=== PATIENT | female | born 1990 | race Caucasian/White ===

== ENCOUNTER 2017-04-30 19:27 | Outpatient (CLI) | payer MEDICAID ==
[~2017-04-30] VITALS: Ht 154.9 cm; Wt 64.2 kg
[2017-04-30 20:24] VITALS: BP 129/91; PULSE 108; RESP 18
[2017-04-30 20:25] VITALS: Ht 154.9 cm; Wt 64.2 kg
[2017-04-30] MEDS ORDERED: FOLI-49 PO (20:29)
[2017-04-30] MEDS ORDERED: PREN1TAB17 PO (20:29)
[2017-04-30 21:25] LABS: URINE BLOOD (Dip) POC 2+ (NEGATIVE)
--- NOTE | 2017-04-30 21:28 | QN ---
Documentation Comment iup 37 weeks luq pain now improved vss exam wnl a/p iup 37 weeks false labor [facility] CHING TIRADO MD Apr 30, 2017 21:28
[2017-04-30 22:57] LABS: ADD UMIC YES; UR ASCORBIC ACID NEGATIVE (NEGATIVE); UR BILIRUBIN (Dip) NEGATIVE (NEGATIVE); UR BLOOD (Dip) 1+ mg/dL (NEGATIVE); UR CLARITY SLIGHTLY CLOUDY (CLEAR); UR COLOR YELLOW (YELLOW); UR GLUCOSE (Dip) NEGATIVE (NEGATIVE); UR KETONES (Dip) NEGATIVE (NEGATIVE); UR LEUKOCYTE ESTERASE (Dip) 1+ Leu/ul (NEGATIVE); UR MUCUS FEW /HPF (NONE SEEN); UR NITRITE (Dip) NEGATIVE (NEGATIVE); UR RBC 25 /HPF (0-5); UR SPECIFIC GRAVITY (Dip) 1.013 (1.003-1.030); UR SQUAMOUS EPITHELIAL CELL MODERATE /HPF (FEW); UR TOTAL PROTEIN (Dip) NEGATIVE (NEGATIVE); UR UROBILINOGEN (Dip) NEGATIVE (NEGATIVE)
--- NOTE | 2017-04-30 23:31 | TRIAGE ---
OB Triage Datetime Report Generated by CPN: 04/30/2017 23:30 Datetime: 04/30/2017 23:09 Time of Arrival: 04/30/2017 19:30 EGA: 36.3 Arrived By: Ambulatory Arrived From: Home Chief Complaint: SENT IN FROM THE DR OFFICE FOR PIH EVALUATION Movement: Present Contractions: Denies/Absent Rupture of Membranes: Denies Vaginal Bleeding: None Vaginal Discharge: Denies Recent Sexual Intercouse: Denies Abdominal Trauma: Not Applicable Patient Complaints: Other Time Provider Notified: 04/30/2017 21:07 Provider Notified: SHAMSIAN Initial Plan: PIH EVAL Datetime: 04/30/2017 21:30 Maternal Assessment Level of Consciousness: Fully Conscious Headache: Denies Blurred Vision: No Nausea/Vomiting: Denies RUQ Epigastric Pain: Denies Facial Edema: None Labor Evaluation Frequency: X1 Monitor Mode: External Duration (sec)2399: 40 Quality: Mild Pattern: Normal: <= 5 Contractions in 10 Minutes Resting Tone [place]: Relaxed Heart Rate FHR Baseline Rate: 135 Monitor Mode: External US FHR Baseline Changes: No Baseline Change Variability: Moderate 6-25 bpm Accelerations: 15X15 Decelerations: None Category: Category I Datetime: 04/30/2017 20:30 Labor Evaluation Frequency: NONE Monitor Mode: External Pattern: Normal: <= 5 Contractions in 10 Minutes Resting Tone [place]: Relaxed Heart Rate FHR Baseline Rate: 135 Monitor Mode: External US Variability: Moderate 6-25 bpm Accelerations: 15X15 Decelerations: None Category: Category I Datetime: 04/30/2017 19:53 Maternal Assessment Level of Consciousness: Fully Conscious DTR's/Clonus: DTRs 2+; No Clonus Headache: Denies Blurred Vision: No Nausea/Vomiting: Denies RUQ Epigastric Pain: Denies Facial Edema: None Datetime: 04/30/2017 19:50 Assessment Type: Triage Maternal Assessment Level of Consciousness: Fully Conscious DTR's/Clonus: DTRs 2+; No Clonus Headache: Denies Blurred Vision: No Respiratory Effort: Unlabored; Regular Rhythm; Equal Expansion Breath Sounds, Left: Clear and Equal Breath Sounds, Right: Clear and Equal Nausea/Vomiting: Denies RUQ Epigastric Pain: Denies Lower Extremities Edema: None Degree: None Upper Extremities Edema: None Degree: None Facial Edema: None Fall Risk Assessment History of Falling: (0) No Secondary Diagnosis: (0) No Ambulatory Aid: (0) Bedrest/Nurse Assist IV Therapy: (0) No Gait: (0) Normal/Bedrest/Immobile Mental Status: (0) Oriented to Own Ability Fall Score: 0 Fall Risk Score Definition: No Risk: No action required
== END 2017-04-30 21:55 | disposition home or self-care (01) ==
LOC: OBT 19:27 → L-D 19:32 → OBT 21:55
PROVIDERS: ATTEND Obstetrics & Gynecology
DX: O47.1 False labor at or after 37 completed weeks of gestation (principal); Z3A.37 37 weeks gestation of pregnancy
CPT/HCPCS: 81001; Z7500; 81003; G0463

== ENCOUNTER 2017-05-07 19:59 | Outpatient (CLI) | payer MEDICAID ==
[~2017-05-07] VITALS: Ht 152.4 cm; Wt 64.7 kg
[~2017-05-07 19:59] MED LIST: FOLI-49 PO; PREN1TAB17 PO
[2017-05-07 21:11] VITALS: BP 132/85; PULSE 105; RESP 18
--- NOTE | 2017-05-07 21:50 | RADRPT ---
PROCEDURE: US OB biophysical profile. CLINICAL INDICATION: decreased movements, contractions TECHNIQUE: Multiple sonographic images of the pelvis were obtained. The images were reviewed on a PACS workstation. COMPARISON: No prior studies are available for comparison. FINDINGS: There is a single viable intrauterine gestation. Cardiac activity is present with 140 beats per min three affiliated. There is a vertex presentation. The placenta is anterior. There is no evidence of placental abruption. There is a normal amount of amniotic fluid with an LAUREN = 11.7 cm. Biophysical profile: movement 2/2 tone 2/2. breathing 2/2 LAUREN 2/2 Total 04/27 RPTAT: AA . IMPRESSION: Normal biophysical profile. . .Hussain Anderson MD, MD Date Time Electronically viewed and signed by .Hussain Anderson MD, MD on 05/07/2017 21:49 .S/
[2017-05-07 22:37] LABS: ADD UMIC YES; UR AMORPHOUS CRYSTAL FEW /HPF (NONE SEEN); UR ASCORBIC ACID NEGATIVE (NEGATIVE); UR BILIRUBIN (Dip) NEGATIVE (NEGATIVE); UR BLOOD (Dip) NEGATIVE (NEGATIVE); UR CLARITY CLOUDY (CLEAR); UR COLOR YELLOW (YELLOW); UR GLUCOSE (Dip) NEGATIVE (NEGATIVE); UR KETONES (Dip) TRACE mg/dL (NEGATIVE); UR LEUKOCYTE ESTERASE (Dip) 2+ Leu/ul (NEGATIVE); UR NITRITE (Dip) NEGATIVE (NEGATIVE); UR RBC 2 /HPF (0-5); UR SPECIFIC GRAVITY (Dip) 1.016 (1.003-1.030); UR SQUAMOUS EPITHELIAL CELL MANY /HPF (FEW); UR TOTAL PROTEIN (Dip) NEGATIVE (NEGATIVE); UR UROBILINOGEN (Dip) NEGATIVE (NEGATIVE)
[2017-05-07 22:39] LABS: BASOPHILS % 0.4 % (0.0-2.0); EOSINOPHILS # 0.1 10^3/ul (0.0-0.5); EOSINOPHILS % 0.9 % (0.0-7.0); HEMATOCRIT 36.9 % (37.0-47.0); HEMOGLOBIN 12.1 g/dl (12.0-16.0); LYMPHOCYTES # 1.8 10^3/ul (0.8-2.9); LYMPHOCYTES % 32.5 % (15.0-51.0); MEAN CORPUSCULAR HEMOGLOBIN 30.4 pg (29.0-33.0); MEAN CORPUSCULAR HGB CONC 32.8 g/dl (32.0-37.0); MEAN CORPUSCULAR VOLUME 92.7 fl (82.0-101.0); MONOCYTE # 0.3 10^3/ul (0.3-0.9); NEUTROPHILS % 59.5 % (39.0-77.0); PLATELET COUNT 328 10^3/UL (140-415); RED BLOOD COUNT 3.98 10^6/ul (4.20-5.40); WHITE BLOOD COUNT 5.5 10^3/ul (4.8-10.8)
[2017-05-07 22:58] LABS: INR 0.89; PARTIAL THROMBOPLASTIN TIME 23.9 Sec (25.0-35.0); PT RATIO 0.9
[2017-05-07 23:02] LABS: ALBUMIN 3.6 g/dl (3.3-4.9); ALBUMIN/GLOBULIN RATIO 1.05; BILIRUBIN,INDIRECT 0.1 mg/dl (0-1.1); BILIRUBIN,TOTAL 0.1 mg/dl (0.2-1.3); CALCIUM 9.7 mg/dl (8.4-10.2); CREATININE 0.45 mg/dl (0.44-1.00); POTASSIUM 3.7 mmol/L (3.5-5.1)
--- NOTE | 2017-05-08 03:40 | PN ---
Triage Information Date/Time 05/08/17 Reason for visit: high blood pressure for 1 weekand yesterday had headahce, uterine contractions q 10 min [id number] Weeks of Gestation 37w3d /Para primigravida Diabetes: none Hypertention: induced Additional information placed on methyldopa 250mg bid started on 05/07/17 Objective Vital Signs Date Time Temp Pulse Resp B/P Pulse Ox O2 Delivery O2 Flow Rate FiO2 05/07/17 21:11 98.2 105 18 132/85 Room Air Heart Rate: 140's Heart Rate Comments tracing reactive Contractions: >10 Minutes Apart Exam no pretibial edema Results/Medications Result Diagram: 05/07/17 2214 05/07/17 221 Results 24 hrs Laboratory Tests Test 05/07/17 20:00 05/07/17 22:14 Urine Color YELLOW Urine Clarity CLOUDY A Urine pH 6.0 Urine Specific [place] 1.016 Urine Ketones TRACE A Urine Nitrite NEGATIVE Urine Bilirubin NEGATIVE Urine Urobilinogen NEGATIVE Urine Leukocyte Esterase 2+ H Urine Microscopic RBC 2 Urine Microscopic WBC 29 H Urine Squamous Epithelial Cells MANY A Urine Calcium Oxalate Crystals MODERATE Urine Amorphous Crystals FEW A Urine Hemoglobin NEGATIVE Urine Glucose NEGATIVE Urine Total Protein NEGATIVE White Blood Count 5.5 Red Blood Count 3.98 L Hemoglobin 12.1 Hematocrit 36.9 L Mean Corpuscular Volume 92.7 Mean Corpuscular Hemoglobin 30.4 Mean Corpuscular Hemoglobin Concent 32.8 Red Cell Distribution Width 14.0 Platelet Count 328 Mean Platelet Volume 10.0 Neutrophils % 59.5 Lymphocytes % 32.5 Monocytes % 6.0 Eosinophils % 0.9 Basophils % 0.4 Nucleated Red Blood Cells % 0.0 Neutrophils # (Manual) 3 Lymphocytes # 1.8 Monocytes # 0.3 Eosinophils # 0.1 Basophils # 0.0 Nucleated Red Blood Cells # 0.0 Prothrombin Time 12.0 L Prothrombin Time Ratio 0.9 INR International Normalized Ratio 0.89 Activated Partial Thromboplast Time 23.9 L Sodium Level 137 Potassium Level 3.7 Chloride Level 99 Carbon Dioxide Level 21 Anion Gap 21 H Blood Urea Nitrogen 12 Creatinine 0.45 Glucose Level 97 Uric Acid 6.0 Calcium Level 9.7 Total Bilirubin 0.1 L Direct Bilirubin 0.00 Indirect Bilirubin 0.1 Aspartate Amino Transf (AST/SGOT) 39 Alanine Aminotransferase (ALT/SGPT) 27 Alkaline Phosphatase 170 H Total Protein 7.0 Albumin 3.6 Globulin 3.40 H Albumin/Globulin Ratio 1.05 Medications cephalexin 500mg q6hr #28 Imaging Results BPP 04/27 LAUREN 11.7 Disposition: Discharge Assessment/Plan IUP 37w3d R/O PIH TOMI CASAREZ MD May 08, 2017 03:38
== END 2017-05-07 23:52 | disposition home or self-care (01) ==
LOC: OBT 19:59 → L-D 20:01 → OBT 23:52
PROVIDERS: ATTEND Obstetrics & Gynecology
DX: O16.3 Unspecified maternal hypertension, third trimester (principal); Z3A.37 37 weeks gestation of pregnancy
CPT/HCPCS: 36415; 76818; 80053; 81001; 84560; 85025; 85610; 85730; Z7500; G0463

== ENCOUNTER 2017-05-12 18:45 | Inpatient (IN) | payer MEDICAID ==
[~2017-05-12] VITALS: Ht 152.4 cm; Wt 65.9 kg
[2017-05-12 19:09] VITALS: Ht 152.4 cm; Wt 65.9 kg
[2017-05-12 21:02] LABS: BASOPHILS % 0.3 % (0.0-2.0); EOSINOPHILS # 0.1 10^3/ul (0.0-0.5); EOSINOPHILS % 0.8 % (0.0-7.0); HEMATOCRIT 37.1 % (37.0-47.0); HEMOGLOBIN 12.6 g/dl (12.0-16.0); LYMPHOCYTES # 1.9 10^3/ul (0.8-2.9); LYMPHOCYTES % 23.9 % (15.0-51.0); MEAN CORPUSCULAR HEMOGLOBIN 31.4 pg (29.0-33.0); MEAN CORPUSCULAR VOLUME 92.5 fl (82.0-101.0); MONOCYTE # 0.5 10^3/ul (0.3-0.9); MONOCYTES % 6.3 % (0.0-11.0); NEUTROPHILS % 67.8 % (39.0-77.0); PLATELET COUNT 343 10^3/UL (140-415); RED BLOOD COUNT 4.01 10^6/ul (4.20-5.40); RED CELL DISTRIBUTION WIDTH 13.9 % (11.5-14.5); WHITE BLOOD COUNT 7.8 10^3/ul (4.8-10.8)
[2017-05-12 21:03] LABS: ADD UMIC YES; UR ASCORBIC ACID NEGATIVE (NEGATIVE); UR BILIRUBIN (Dip) NEGATIVE (NEGATIVE); UR BLOOD (Dip) 2+ mg/dL (NEGATIVE); UR CLARITY CLOUDY (CLEAR); UR COLOR YELLOW (YELLOW); UR GLUCOSE (Dip) NEGATIVE (NEGATIVE); UR KETONES (Dip) NEGATIVE (NEGATIVE); UR LEUKOCYTE ESTERASE (Dip) 3+ Leu/ul (NEGATIVE); UR NITRITE (Dip) NEGATIVE (NEGATIVE); UR RBC 1 /HPF (0-5); UR SPECIFIC GRAVITY (Dip) 1.008 (1.003-1.030); UR SQUAMOUS EPITHELIAL CELL MANY /HPF (FEW); UR TOTAL PROTEIN (Dip) NEGATIVE (NEGATIVE); UR UROBILINOGEN (Dip) NEGATIVE (NEGATIVE)
[2017-05-12 21:22] LABS: INR 0.88; PROTIME 11.9 Sec (12.2-14.2); PT RATIO 0.9
[2017-05-12 21:29] LABS: ALBUMIN 3.7 g/dl (3.3-4.9); ALBUMIN/GLOBULIN RATIO 1.15; BILIRUBIN,INDIRECT 0.2 mg/dl (0-1.1); BILIRUBIN,TOTAL 0.2 mg/dl (0.2-1.3); CALCIUM 9.7 mg/dl (8.4-10.2); CREATININE 0.49 mg/dl (0.44-1.00); POTASSIUM 3.7 mmol/L (3.5-5.1); TOTAL PROTEIN 6.9 g/dl (6.1-8.1); URIC ACID 5.2 mg/dl (3.1-7.9)
[2017-05-12] MEDS ORDERED: CARBOPROST 250 MCG INJ IM PRN (21:30)
[2017-05-12] MEDS ORDERED: MISOPROSTOL 200 MCG TAB PR PRN (21:30)
[2017-05-12] MEDS ORDERED: OXYTOCIN 30 UNITS/LR 500 ML IV SCH ×2 (21:30)
[2017-05-12] MEDS ORDERED: IBUPROFEN 600 MG TAB PO PRN (21:30)
[2017-05-12] MEDS ORDERED: METHYLERGONOVINE 0.2 MG INJ IM PRN (21:30)
[2017-05-12] MEDS ORDERED: OXYTOCIN 30 UNITS/LR 500 ML IV PRN (21:30)
[2017-05-12] MEDS ORDERED: BUTORPHANOL 2 MG INJ IV PRN (21:30)
[2017-05-12] MEDS ORDERED: MINERAL OIL LIGHT 10 ML VIAL TOP ONE (21:30)
[2017-05-12] MEDS ORDERED: LIDOCAINE 1% (MPF) 30 ML INJ INJ PRN (21:30)
[2017-05-12 22:02] LABS: PARTIAL THROMBOPLASTIN TIME 24.9 Sec (25.0-35.0)
--- NOTE | 2017-05-12 22:16 | RADRPT ---
PROCEDURE: US OB ESTIMATED WEIGHT. CLINICAL INDICATION: Pain. TECHNIQUE: Multiple sonographic images of the pelvis were obtained. The images were reviewed on a PACS workstation. COMPARISON: 05/07/2017 FINDINGS: There is a single live intrauterine gestation. Cardiac activity is present with 132 beats per minut e. There is a vertex presentation. Measurements were made in order to determine age. The results are as follows: BPD =9.2 cm = 37 weeks 3 days HC =34 cm = 38 weeks 3 days AC =33.3 cm = 37 weeks 2 days FL =7.4 cm = 37 weeks 6 days Estimated gestational age of approximately 37 weeks 5 days. There has been appropriate interval he wth compared to the prior. The estimated date of delivery is 05/28/2017. The EFW = 3241 g 47.4% This examination was not performed for anatomy. The placenta is anterior. There is no evidence for an abruption or placenta previa. IMPRESSION: EFW = 3241 g. RPTAT: HIKT .Eric You MD, Date Time Electronically viewed and signed by .Eric You MD, on 05/12/2017 22:16 .T/
--- NOTE | 2017-05-12 22:19 | RADRPT ---
PROCEDURE: OB ultrasound for biophysical profile CLINICAL INDICATION: Contractions. TECHNIQUE: Multiple sonographic images of the gravid uterus performed. The images were reviewed on a PACS workstation. COMPARISON: 05/07/2017 FINDINGS: A single live intrauterine is identified with heart rate of 144 bpm. Fet us is in a cephalic presentation. Placenta is located anterior. head circumference is 34 cm which corresponds to 38 weeks 5 days. Biophysical profile: breathing movement = 2/2 tone = 2/2 motion = 2/2 LAUREN = 2/2 LAUREN = 13.62 cm. IMPRESSION: 1. Single live intrauterine gestation. 2. Biophysical profile = 8/8. 3. LAUREN = 13.62 cm. RPTAT: HMVK .Darin Smith MD, MD Date Time Electronically viewed and signed by .Darin Smith MD, on 05/12/2017 22:19 .K/
[2017-05-12] MEDS ORDERED: LACTATED RINGER'S 1,000 ML IV PRN (23:00)
[2017-05-12] MEDS: LACTATED RINGER'S 1,000 ML IV SCH (23:29)
--- NOTE | 2017-05-13 01:19 | TRIAGE ---
OB Triage Datetime Report Generated by CPN: 05/13/2017 01:18 Datetime: 05/13/2017 01:00 Stage of : Labor Temperature Route: Oral Labor Evaluation Frequency: 2-4 Monitor Mode: External Duration (sec)2399: 70-120 Quality: Moderate Pattern: Normal: <= 5 Contractions in 10 Minutes Resting Tone [place]: Relaxed Heart Rate FHR Baseline Rate: 140 Monitor Mode: External US Variability: Moderate 6-25 bpm Accelerations: 15X15 Decelerations: None Category: Category I Pain Assessment Pain Scale: 7 Pain Presence: Intermittent Pain Type: Cramping Pain Location: Abdomen; Back Pain Goal: 5 Pain Relief Measures: Comfort Measures Datetime: 05/13/2017 00:00 Stage of : Labor Labor Evaluation Frequency: 1-5 Monitor Mode: External Duration (sec)2399: 70-120 Quality: Moderate Pattern: Normal: <= 5 Contractions in 10 Minutes Resting Tone [place]: Relaxed Heart Rate FHR Baseline Rate: 140 Monitor Mode: External US Variability: Moderate 6-25 bpm Accelerations: 15X15 Decelerations: None Category: Category I Pain Assessment Pain Scale: 7 Pain Presence: Intermittent Pain Type: Cramping Pain Location: Abdomen; Back Pain Goal: 5 Pain Relief Measures: Comfort Measures Datetime: 05/12/2017 23:00 Stage of : Labor Labor Evaluation Frequency: 1-4 Monitor Mode: External Duration (sec)2399: 70-120 Quality: Moderate Pattern: Normal: <= 5 Contractions in 10 Minutes Resting Tone [place]: Relaxed Heart Rate FHR Baseline Rate: 140 Monitor Mode: External US Variability: Moderate 6-25 bpm Accelerations: 15X15 Decelerations: None Category: Category I Pain Assessment Pain Scale: 5 Pain Presence: Intermittent Pain Type: Cramping Pain Location: Abdomen; Back Pain Goal: 5 Pain Relief Measures: Comfort Measures Datetime: 05/12/2017 22:50 Assessment Type: Admission Assessment Time of Arrival: 05/12/2017 18:41 EGA: 38.1 Arrived By: Wheelchair Arrived From: Home Chief Complaint: c/o ucs. Hx PIH Movement: Present Contractions: Irregular Rupture of Membranes: Denies Vaginal Bleeding: None Vaginal Discharge: Denies Recent Sexual Intercouse: Denies Abdominal Trauma: Not Applicable Patient Complaints: Contractions Time Provider Notified: 05/12/2017 19:25 Provider Notified: Dr Mix Maternal Assessment Level of Consciousness: Fully Conscious DTR's/Clonus: DTRs 2+; No Clonus Headache: Denies Blurred Vision: No Respiratory Effort: Unlabored; Regular Rhythm; Equal Expansion Breath Sounds, Left: Clear and Equal Breath Sounds, Right: Clear and Equal Nausea/Vomiting: Denies RUQ Epigastric Pain: Denies Lower Extremities Edema: None Upper Extremities Edema: None Facial Edema: None Fall Risk Assessment History of Falling: (0) No Secondary Diagnosis: (0) No Ambulatory Aid: (0) Bedrest/Nurse Assist IV Therapy: (0) No Gait: (0) Normal/Bedrest/Immobile Mental Status: (0) Oriented to Own Ability Fall Score: 0 Fall Risk Score Definition: No Risk: No action required Membrane Status: Intact Datetime: 05/12/2017 22:24 Monitor Mode: Doppler Vaginal Exam Dilatation (cms): 2.5 Effacement (%): 100 Station: -1 Exam By: ROB Vaginal Bleeding: None Cervix, Consistency: Soft Cervix, Position: Midposition Datetime: 05/12/2017 22:00 Stage of : Labor Labor Evaluation Frequency: 2-4.5 Monitor Mode: External Duration (sec)2399: 70-120 Quality: Moderate Pattern: Normal: <= 5 Contractions in 10 Minutes Resting Tone [place]: Relaxed Heart Rate FHR Baseline Rate: 140 Monitor Mode: External US Variability: Moderate 6-25 bpm Accelerations: 15X15 Decelerations: None Category: Category I Pain Assessment Pain Scale: 5 Pain Presence: Intermittent Pain Type: Cramping Pain Location: Abdomen; Back Pain Goal: 5 Pain Relief Measures: Comfort Measures Datetime: 05/12/2017 21:00 Stage of : OB Triage Labor Evaluation Frequency: 2-5 Monitor Mode: External Duration (sec)2399: 50-120 Quality: Mild Pattern: Normal: <= 5 Contractions in 10 Minutes Resting Tone [place]: Relaxed Heart Rate FHR Baseline Rate: 140 Monitor Mode: External US Variability: Moderate 6-25 bpm Accelerations: 15X15 Decelerations: None Category: Category I Datetime: 05/12/2017 20:00 Stage of : OB Triage Labor Evaluation Frequency: 2-9 Monitor Mode: External Duration (sec)2399: 40-80 Quality: Mild Pattern: Normal: <= 5 Contractions in 10 Minutes Resting Tone [place]: Relaxed Heart Rate FHR Baseline Rate: 140 Monitor Mode: External US Variability: Moderate 6-25 bpm Accelerations: 15X15 Decelerations: Variable Category: Category II Datetime: 05/12/2017 18:58 Stage of : OB Triage Datetime: 05/07/2017 20:00 EGA: 37.3 Datetime: 04/30/2017 23:09 EGA: 36.3 Datetime: 04/30/2017 19:50 Fall Score: 0 Fall Risk Score Definition: No Risk: No action required
[2017-05-13] MEDS: LACTATED RINGER'S 1,000 ML IV SCH ×2 (06:39→14:05)
[2017-05-13] MEDS ORDERED: FENTAnyl 2MCG/ML-ROPIV 0.2% 100 ML ONE (14:43)
[2017-05-13] MEDS ORDERED: FENTAnyl 2MCG/ML-ROPIV 0.2% 100 ML BAG EPI SCH (15:30)
[2017-05-13] MEDS ORDERED: NALOXONE (0.4 MG/ML) INJ IV PRN (15:30)
--- NOTE | 2017-05-13 17:33 | LDN ---
Date/Time of Note Date/Time of Note DATE: 05/13/17 TIME: 17:28 Delivery Summary Normal spontaneous vaginal delivery of a baby girl from OA position shoulders delivered without difficulty rest of the baby's body follow cord clamped after stopped pulsation placenta spontaneous expulsion inspected complete patient sustained 2 small periurethral laceration repaired with 4-0 chromic catgut estimated blood loss 250 cc Weeks of Gestation 38 weeks Placenta Delivered: Spontaneously Meconium: none Episiotomy: No Laceration repair: 2 paraurethral laceration repaired with 4-0 chromic catgut Anesthesia type: Epidural Estimated blood loss: 250 Sponge & Needle done & correct: Yes All needle counts correct: Yes Any foreign bodies felt in the: No Problems: LY HWANG MD May 13, 2017 17:33
--- NOTE | 2017-05-13 17:38 | HP ---
Date/Time of Note Date/Time of Note DATE: 05/13/17 TIME: 17:33 OB - History Hx of Present Free Text/Dictation 26 years old female 1 para 0 admitted to [facility] inlaid pelvic examination on admission cervical dilatation 4 cm 90% effacement vertex at -1 station patient admitted to L&D sophia management for delivery Chief Complaint: Labor contract Estimated Due Date: May 25, 2017 : 1 Para: 0 Care: Good Care Ultrasounds: Normal mid trimester US Obstetrical Complications: None Medical Complications: None Past Family/Social History * Past Medical, Surgical, Family and Obstetric Histories reviewed from chart. Rubella: immune RPR/VDRL: Negative GBS Status: Negative HBsAG: Negative OB Admission Exam Physical Exam HEENT: WNL Heart: Rhythm Normal Lungs: Clear, Equal Abdomen: WNL Extremities: Normal Effacement: 100% Station: -1 Accelerations: Accelerations Present Varibility: Marked Intensity: Firm Last 72 hours Lab Results CBC & BMP 05/12/17 20:54 Liver Function Test 05/12/17 20:54 Alanine Aminotransferase (ALT/SGPT) 32 Albumin 3.7 Alkaline Phosphatase 186 H Aspartate Amino Transf (AST/SGOT) 31 Direct Bilirubin 0.00 Total Protein 6.9 OB Assessment/Plan Reason for admission: active labor, other Induction Method: other (26 years old female 1 para 0 admitted to [facility] in active labor examination on admission cervix 4 cm dilated 100% effaced vertex at -1 station patient transferred from triage unit to L&D for vaginal delivery) LY HWANG MD May 13, 2017 17:37
[2017-05-13 21:15] VITALS: BP 124/82; PULSE 105; RESP 19
[2017-05-13] MEDS ORDERED: HYDROCODONE/APAP (5/325) TAB PO PRN ×2 (21:30)
[2017-05-13] MEDS ORDERED: WITCH HAZEL/GLYCERIN PAD PR PRN (21:30)
[2017-05-13] MEDS ORDERED: BENZOCAINE 20% 56 ML SPRAY TOP PRN (21:30)
[2017-05-13] MEDS ORDERED: ONDANSETRON 4 MG INJ IV PRN (21:30)
[2017-05-13] MEDS ORDERED: LANOLIN 7 GM TUBE TOP PRN (21:30)
[2017-05-13] MEDS ORDERED: DIBUCAINE 1% 30 GM OINT PR PRN (21:30)
[2017-05-13] MEDS ORDERED: ACETAMINOPHEN 325 MG TAB PO PRN (21:30)
[2017-05-13] MEDS ORDERED: OXYCODONE/ASPIRIN (4.88/325) TAB PO PRN ×2 (21:30)
[2017-05-13] MEDS: OXYTOCIN 30 UNITS/LR 500 ML IV SCH (21:56)
[2017-05-13 22:15] VITALS: BP 135/87; PULSE 101; RESP 19
[2017-05-14] VITALS: BP 109/76; PULSE 89; RESP 18
[2017-05-14] MEDS: IBUPROFEN 600 MG TAB PO SCH ×4 (00:26→18:14)
[2017-05-14] MEDS: OXYTOCIN 30 UNITS/LR 500 ML IV SCH (01:22)
[2017-05-14 04:05] VITALS: BP 119/86; PULSE 89; RESP 19
[2017-05-14 07:46] VITALS: BP 112/65; PULSE 90; RESP 20
[2017-05-14] MEDS: SENNA/DOCUSATE NA (8.6MG/50MG) TAB PO SCH ×2 (09:29→22:00)
[2017-05-14 09:42] LABS: BASOPHILS % 0.1 % (0.0-2.0); EOSINOPHILS % 0.5 % (0.0-7.0); HEMATOCRIT 30.5 % (37.0-47.0); HEMOGLOBIN 10.3 g/dl (12.0-16.0); LYMPHOCYTES # 1.4 10^3/ul (0.8-2.9); LYMPHOCYTES % 17.8 % (15.0-51.0); MEAN CORPUSCULAR HEMOGLOBIN 31.7 pg (29.0-33.0); MEAN CORPUSCULAR HGB CONC 33.8 g/dl (32.0-37.0); MEAN CORPUSCULAR VOLUME 93.8 fl (82.0-101.0); MEAN PLATELET VOLUME 9.2 fl (7.4-10.4); MONOCYTE # 0.5 10^3/ul (0.3-0.9); MONOCYTES % 6.3 % (0.0-11.0); NEUTROPHILS % 74.9 % (39.0-77.0); PLATELET COUNT 284 10^3/UL (140-415); RED BLOOD COUNT 3.25 10^6/ul (4.20-5.40); RED CELL DISTRIBUTION WIDTH 14.1 % (11.5-14.5); WHITE BLOOD COUNT 7.9 10^3/ul (4.8-10.8)
--- NOTE | 2017-05-14 10:01 | PN ---
Date/Time of Note Date/Time of Note DATE: 05/14/17 TIME: 10:00 OB Subjective Subjective Subjective day 1 Afebrile Vital signs are stable Abdomen soft Uterus firm Lochia normal Extremity normal Laboratory Tests Test 05/14/17 08:48 White Blood Count 7.910^3/ul Red Blood Count 3.2510^6/ul Hemoglobin 10.3g/dl Hematocrit 30.5% Mean Corpuscular Volume 93.8fl Mean Corpuscular Hemoglobin 31.7pg Mean Corpuscular Hemoglobin Concent 33.8g/dl Red Cell Distribution Width 14.1% Platelet Count 69373^3/UL Mean Platelet Volume 9.2fl Neutrophils % 74.9% Lymphocytes % 17.8% Monocytes % 6.3% Eosinophils % 0.5% Basophils % 0.1% Nucleated Red Blood Cells % 0.0/100WBC Neutrophils # (Manual) 5.910^3/ul Lymphocytes # 1.410^3/ul Monocytes # 0.510^3/ul Eosinophils # 0.010^3/ul Basophils # 0.010^3/ul Nucleated Red Blood Cells # 0.010^3/ul Current Medications Medications (Trade) Dose Ordered Sig/Ash Route PRN Reason Start Time Stop Time Status Last Admin Dose Admin Lactated Ringer's (Lr) 1,000 ml @ 125 mls/hr Q8H IV 05/12/17 21:15 05/13/17 21:25 DC 05/13/17 14:05 Butorphanol Tartrate (Stadol) 2 mg Q2H PRN IV PAIN 05/12/17 21:30 05/13/17 21:25 DC Lidocaine 30 ml 30 ml ONCE PRN INJ EPISIOTOMY/TEARING 05/12/17 21:30 05/13/17 21:25 DC Oxytocin/Lactated Ringer's 500 ml @ 125 mls/hr ONCE -MAY REPEAT X1 IV 05/12/17 21:30 05/13/17 21:25 DC Oxytocin/Lactated Ringer's 500 ml @ 125 mls/hr ONCE IV 05/12/17 21:30 05/13/17 21:26 DC 05/13/17 17:06 Ibuprofen 600 mg 600 mg ONCE PRN PO Mild Pain (Pain Score 1-3) 05/12/17 21:30 05/13/17 21:26 DC 05/13/17 19:48 Lactated Ringer's 1,000 ml @ 2,000 mls/hr Q30M PRN IV PRE-EPIDURAL BOLUS 05/12/17 23:00 05/13/17 15:06 DC 05/13/17 14:30 Oxytocin/Lactated Ringer's 500 ml @ 0 mls/hr ONCE PRN IV For Hemorrhage Management 05/12/17 21:30 05/13/17 21:24 DC 05/13/17 13:06 Methylergonovine Maleate (Methergine) 0.2 mg ONCE PRN IM VAGINAL BLEEDING 05/12/17 21:30 05/13/17 21:24 DC Carboprost Tromethamine (Hemabate) 250 mcg ONCE PRN IM VAGINAL BLEEDING 05/12/17 21:30 05/13/17 21:24 DC Misoprostol (Cytotec) 1,000 mcg ONCE PRN W[place] VAGINAL BLEEDING 05/12/17 21:30 05/13/17 21:24 DC Mineral Oil ONCE ONCE TOP 05/12/17 21:30 05/12/17 21:31 DC Fentanyl/ Ropivacaine 100 ml @ STK-MED ONCE .ROUTE 05/13/17 14:43 05/13/17 14:44 DC Naloxone HCl (Narcan) 0.2 mg Q2M PRN IV FOR RESP RATE 8 OR LESS 05/13/17 15:30 05/13/17 21:24 DC Fentanyl/ Ropivacaine 100 ml 100 ml EPIDURAL (PCEA) EPI 05/13/17 15:30 05/13/17 21:24 DC Oxytocin/Lactated Ringer's 500 ml @ 125 mls/hr Q4H IV 05/13/17 21:22 05/14/17 05:21 DC 05/13/17 21:56 Ibuprofen (Motrin) 600 mg Q6 PO 05/14/17 00:00 05/14/17 05:30 Acetaminophen (Tylenol Tab) 650 mg Q4H PRN PO PAIN LEVEL 1-5 05/13/17 21:30 Acetaminophen/ Hydrocodone Bitart ([place] (5/325)) 1 tab Q4H PRN PO PAIN LEVEL 1-5 05/13/17 21:30 Acetaminophen/ Hydrocodone Bitart ([place] (5/325)) 2 tab Q4H PRN PO PAIN LEVEL 6-10 05/13/17 21:30 Oxycodone/Aspirin (Percodan) 1 tab Q3H PRN PO PAIN LEVEL 1-5 05/13/17 21:30 Oxycodone/Aspirin (Percodan) 2 tab Q3H PRN PO PAIN LEVEL 6-10 05/13/17 21:30 Ondansetron HCl (Zofran Inj) 4 mg Q6H PRN IV NAUSEA AND/OR VOMITING 05/13/17 21:30 Senna/Docusate Sodium (Senokot-S) 1 tab BID PO 05/14/17 09:00 05/14/17 09:29 Witch Karyna/ Glycerin (Tucks Pads) 1 pad BEDSIDE MEDICATION PRN [place] HEMORRHOID/EPISIOTMY PAIN 05/13/17 21:30 05/13/17 21:57 Benzocaine (Dermoplast Elim) 1 spray BEDSIDE MEDICATION PRN TOP HEMORRHOID/EPISIOTMY PAIN 05/13/17 21:30 05/13/17 21:57 Dibucaine (Nupercainal) 1 applic BEDSIDE MEDICATION PRN [place] HEMORRHOID/EPISIOTMY PAIN 05/13/17 21:30 Lanolin (Wwj-U-Efcqve) 1 applic BEDSIDE MEDICATION PRN TOP BEDSIDE FOR [facility] TO NIPPLES 05/13/17 21:30 05/13/17 21:57 Measles/Mumps/ Rubella Vaccine Live (Mmr Ii Vaccine) 0.5 ml ONCE ONCE SC* 05/15/17 09:00 05/15/17 09:01 LY HWANG MD May 14, 2017 10:01
[2017-05-14 16:00] VITALS: BP 127/79; PULSE 98; RESP 18
[2017-05-14 20:00] VITALS: BP 130/98; PULSE 99; RESP 20
[2017-05-15 04:00] VITALS: BP 114/82; PULSE 82; RESP 20
[2017-05-15] MEDS: IBUPROFEN 600 MG TAB PO SCH ×3 (06:00→12:58)
[2017-05-15 07:58] VITALS: BP 120/80; PULSE 84; RESP 18
[2017-05-15] MEDS ORDERED: MEASLES,MUMPS,RUBELLA VACCINE INJ SC* ONE (09:00)
[2017-05-15] MEDS: SENNA/DOCUSATE NA (8.6MG/50MG) TAB PO SCH (09:03)
--- NOTE | 2017-05-15 11:54 | PD.PPDC ---
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
--- NOTE | 2017-05-15 11:59 | DS ---
Date/Time of Note Date/Time of Note DATE: 05/15/17 TIME: 11:55 Discharge Summary Admission/Discharge Info Admit Date/Time May 12, 2017 at 21:15 Discharge Date/Time MAY [id number] Discharge Diagnosis POST DAY 2 Patient Condition: Good Procedures NORMAL VAG DELIVERY Hx of Present Illness TERM Hospital Course [facility] Home Meds Reported Medications Folic Acid* (Folic Acid*) 1 Mg Tablet, 1 MG PO DAILY, TAB 04/30/17 Vit-Iron Fumarate-FA ( Tablet) 1 Each Tablet, 1 TAB PO DAILY, TAB 04/30/17 Follow-up Plan [facility] 2 WEEKS Primary Care Provider Not On Staff Doctor Time spent on discharge: < 30 minutes LY HWANG MD May 15, 2017 11:59
[2017-05-15 15:00] VITALS: BP 120/78; PULSE 84; RESP 18
== END 2017-05-15 15:55 | disposition home or self-care (01) | DRG 775 ==
LOC: OBT 18:45 → L-D 18:46 → OBT 21:15 → L-D 21:15 → PP1 05-13 21:13
PROVIDERS: ADMIT Obstetrics & Gynecology; ATTEND Obstetrics & Gynecology
PROC: 10E0XZZ Delivery of Products of Conception, External Approach (ICD-10-PCS; principal; 2017-05-13)
PROC: 0UQMXZZ Repair Vulva, External Approach (ICD-10-PCS; 2017-05-13)
PROC: 3E033VJ Introduction of Other Hormone into Peripheral Vein, Percutaneous Approach (ICD-10-PCS; 2017-05-13)
DX: O71.82 Other specified trauma to perineum and vulva (principal); Z37.0 Single live birth; Z3A.38 38 weeks gestation of pregnancy
CPT/HCPCS: 62319; 76815; 76818; 80053; 81001; 84560; 85025; 85610; 85730; 86592; 86900; 86901; G0463; J2590; J3010; J7120